=== PATIENT | female | born 1970 | race Caucasian/White ===

== ENCOUNTER 2020-08-23 17:52 | Emergency (ER) | payer MEDICAID, OTHER ==
[~2020-08-23] VITALS: Ht 170.2 cm; Wt 68.0 kg
[2020-08-23 17:58] VITALS: BP 104/63
[2020-08-23] MEDS ORDERED: ONDANSETRON HCL 4 MG/2 ML VIAL IV ONE (18:15)
[2020-08-23] MEDS ORDERED: SODIUM CHLORIDE 0.9% 500 ML IVB ONE (18:15)
[2020-08-23] MEDS ORDERED: MORPHINE SULFATE 4 MG/ML SYR/VIAL IV ONE (18:15)
[2020-08-23 19:59] LABS: Basophils # (auto) 0 10 ^3/uL (0-0.2); Basophils % (auto) 0.4 % (0.0-2.0); Eosinophils # (auto) 0.2 10 ^3/uL (0-0.8); Eosinophils % (auto) 3.8 % (0.0-7.0); Hematocrit 32.3 % (36.0-46.0); Hemoglobin 11.1 g/dL (12.2-16.2); Lymphocytes # (auto) 1.6 10 ^3/uL (0.4-5.4); Lymphocytes % (auto) 34.5 % (10.0-50.0); Mean Corpuscular Hemoglobin 31.4 pg (28.0-32.0); Mean Corpuscular Hgb Conc. 34.2 g/dL (32.0-36.0); Mean Corpuscular Volume 91.6 fL (80.0-100.0); Monocytes # (auto) 0.6 10 ^3/uL (0-1.3); Monocytes % (auto) 12.6 % (0.0-12.0); Neutrophils # (auto) 2.3 10 ^3/uL (1.6-8.6); Neutrophils % (auto) 48.7 % (37.0-80.0); Platelet Count (auto) 447 10^3/uL (140-450); Red Blood Cells 3.52 10^6/uL (4.0-5.20); Red Cell Distribution Width 14.7 % (11.8-14.3); White Blood Cell 4.7 10^3/uL (4.4-10.8)
[2020-08-23 20:11] LABS: Albumin 3.5 g/dL (3.4-5.0); Potassium 3.5 mmol/L (3.5-5.1)
[2020-08-23 20:16] LABS: BUN/Creatinine Ratio 17.9; Bilirubin, Total 0.3 mg/dL (0.2-1.0); Total Protein 6.6 g/dL (6.4-8.2)
== END 2020-08-23 20:20 | disposition left against medical advice (07) ==
LOC: ER 17:52
DX: D21.9 Benign neoplasm of connective and other soft tissue, unspecified (principal); F17.210 Nicotine dependence, cigarettes, uncomplicated; Z90.49 Acquired absence of other specified parts of digestive tract; Z88.0 Allergy status to penicillin
CPT/HCPCS: 36415; 71046; 74176; 80053; 83690; 85025